=== PATIENT | male | born 1995 | race Two or more races ===

== ENCOUNTER 2023-11-13 20:33 | Emergency (ER) | payer OTHER ==
[~2023-11-13] VITALS: Ht 185.4 cm; Wt 74.8 kg
[2023-11-13] MEDS ORDERED: 0.9 % SODIUM CHLORIDE 1,000 ML IV STA (21:00)
[2023-11-13 21:23] LABS: HEMATOCRIT 41.2 % (39.0-48.0); HEMOGLOBIN 14.1 g/dL (13-16.00); MEAN CELL VOLUME 82.7 fL (80.0-100.00); MEAN CORPUSCULAR HEMOGLOBIN 28.4 pg (27.00-32.0); MEAN CORPUSCULAR HGB CONC 34.3 g/dl (32.0-36.0); PLATELET COUNT 174 K/uL (150-450); RED BLOOD COUNT 4.98 M/uL (4.00-6.00); RED CELL DISTRIBUTION WIDTH 13.4 % (11.5-14.5)
[2023-11-13 21:44] LABS: CALCIUM 9.3 mg/dL (8.5-10.1); CREATININE SERUM 0.89 mg/dL (0.70-1.30); GFR 101.78; POTASSIUM 3.68 mEq/L (3.5-5.1)
[2023-11-13 23:27] LABS: PH,URINE 5.5 (5.0-8.0); URINE APPEARANCE Clear; URINE BILIRRUBIN Negative (NEGATIVE); URINE BLOOD Negative; URINE COLOR Dark Yellow; URINE GLUCOSE Negative (NEGATIVE); URINE LEUKOCYTE Negative; URINE NITRATE Negative; URINE PROTEIN 30 (NEGATIVE)
[2023-11-13 23:31] LABS: URINE BACTERIA 7.5 uL (0.0-1933); URINE WBC 7.1 uL (0.0-23.2)
[2023-11-14] MEDS ORDERED: HYOSCYAMINE SULFATE 0.125 MG TAB.SUBL SL ONE (01:45)
[2023-11-14] MEDS ORDERED: LACTOBACILLUS ACIDOPHILUS 1 CAP CAP PO STA (01:45)
[2023-11-14] MEDS ORDERED: CIPROFLOXACIN IN 5 % DEXTROSE 400 MG/200 ML PIGGYBAG IV STA (01:45)
[2023-11-14] MEDS ORDERED: FAMOTIDINE/PF 20 MG/2 ML VIAL IV PUSH STA (01:50)
[2023-11-14] MEDS ORDERED: HYOSCYAMINE SULFATE 0.125 MG TAB.SUBL SL STA (01:51)
[2023-11-14] MEDS ORDERED: ONDANSETRON ODT8 MG PO (04:55)
[2023-11-14] MEDS ORDERED: CIPRO500 MG PO (04:55)
[2023-11-14] MEDS ORDERED: INTESTINEX680 M1 PO (04:55)
[2023-11-14] MEDS ORDERED: LEVSIN/SL0.125 MG SL (04:55)
== END 2023-11-14 05:03 ==
LOC: ER 20:34
PROVIDERS: Emergency Medicine
DX: K52.9 Noninfective gastroenteritis and colitis, unspecified (principal)